=== PATIENT | female | born 1970 | race Caucasian/White ===

== ENCOUNTER 2016-10-31 11:47 | Emergency (ER) | payer MEDICAID ==
[~2016-10-31] VITALS: Ht 162.6 cm; Wt 83.1 kg
[~2016-10-31 11:47] MED LIST: ASPI-621 PO; BUTA1CAP57 PO; CARB200T4 PO; HYDR50TA13 PO; PARO20TA4 PO; PRAZ1CAP2 PO; PRAZ2CAP2 PO; RISP0.5T18 PO; TRAZ50TA18 PO
[2016-10-31 12:27] VITALS: BP 101/68
== END 2016-10-31 13:28 | disposition home or self-care (01) ==
LOC: ED 13:05
DX: J20.8 Acute bronchitis due to other specified organisms (principal); J45.909 Unspecified asthma, uncomplicated; I10 Essential (primary) hypertension; F17.210 Nicotine dependence, cigarettes, uncomplicated; F15.10 Other stimulant abuse, uncomplicated
CPT/HCPCS: 71020; 99284

== ENCOUNTER 2018-05-26 01:18 | Emergency (ER) | payer MEDICAID ==
[~2018-05-26] VITALS: Ht 165.1 cm; Wt 59.0 kg
[~2018-05-26 01:18] MED LIST changes: -RISP0.5T18 PO; +RISP0.5T24 PO; +TRAZ-136 PO; -TRAZ50TA18 PO
[2018-05-26 01:21] VITALS: BP 141/84
[2018-05-26] MEDS ORDERED: IBUPROFEN 800 MG TABLET PO STA (03:37)
[2018-05-26] MEDS ORDERED: IBUPROFEN 800 MG TABLET ONE (03:43)
== END 2018-05-26 04:32 | disposition home or self-care (01) ==
LOC: ED 03:45
DX: M77.8 Other enthesopathies, not elsewhere classified (principal); F31.9 Bipolar disorder, unspecified; F41.1 Generalized anxiety disorder; I10 Essential (primary) hypertension; Z86.73 Personal history of transient ischemic attack (TIA), and cerebral infarction without residual deficits; F17.210 Nicotine dependence, cigarettes, uncomplicated
CPT/HCPCS: 99284

== ENCOUNTER 2018-10-02 19:23 | Emergency (ER) | payer MEDICAID ==
[~2018-10-02] VITALS: Ht 165.1 cm; Wt 62.6 kg
[~2018-10-02 19:23] MED LIST changes: -ASPI-621 PO; +ASPI81TA45 PO; -TRAZ-136 PO; +TRAZ50TA66 PO
[2018-10-02 19:29] VITALS: BP 132/83
--- NOTE | 2018-10-02 20:39 | NUR ---
PT HERE FRO CHRONIC FOOT PAIN X 18 YEARS.
--- NOTE | 2018-10-02 21:09 | NUR ---
Patient/Caregiver given discharge instructions and they have confirmed that they understand the instructions. Patient ambulatory with steady gait.
== END 2018-10-02 21:11 | disposition home or self-care (01) ==
LOC: ED 21:05
DX: M79.672 Pain in left foot (principal); M79.671 Pain in right foot; J45.909 Unspecified asthma, uncomplicated; F31.9 Bipolar disorder, unspecified; I10 Essential (primary) hypertension
CPT/HCPCS: 99283